=== PATIENT | male | born 1950 | race Hispanic/Latino ===

== ENCOUNTER → 2017-09-25 | Day surgery (SDC) | payer OTHER ==
[2017-09-24 09:50] LABS: BASOPHILS # (AUTO) 0.1 (0.0-0.1); BASOPHILS % 0.8 % (0.0-1.0); EOSINOPHILS # (AUTO) 1.4 (0.0-0.4); EOSINOPHILS % 19.9 % (0.0-6.0); HEMATOCRIT 40.3 % (38.2-49.6); HEMOGLOBIN 13.7 g/dL (14.0-18.0); LYMPHOCYTES # (AUTO) 2.1 (1.0-3.2); LYMPHOCYTES % 30.1 % (18.0-39.1); MEAN CORPUSCULAR HEMOGLOBIN 30.4 pg (28-32); MEAN CORPUSCULAR VOLUME 89.4 fL (81-99); MONOCYTES # (AUTO) 0.8 (0.2-0.8); MONOCYTES % 10.6 % (4.4-11.3); NEUTROPHILS # (AUTO) 2.7 (2.1-6.9); NEUTROPHILS % 38.3 % (38.7-80.0); PLATELET COUNT 164 x10e3/uL (140-360); RED BLOOD COUNT 4.51 x10e6/uL (4.3-5.7); RED CELL DISTRIBUTION WIDTH 13.8 % (11.7-14.4)
[2017-09-24 10:07] LABS: INR 1.23; PROTHROMBIN TIME 14.6 seconds (11.9-14.5)
[2017-09-24 10:08] LABS: PARTIAL THROMBOPLASTIN TIME 29.5 seconds (23.8-35.5)
[2017-09-24 10:10] LABS: ALANINE AMINOTRANSFERASE 18 IU/L (0-55); ALBUMIN 3.9 g/dL (3.5-5.0); ALBUMIN/GLOBULIN RATIO 1.1 (0.8-2.0); ALKALINE PHOSPHATASE 64 IU/L (40-150); ANION GAP 11.4 mmol/L (8-16); BLOOD UREA NITROGEN 20 mg/dL (7-26); BUN/CREATININE RATIO 19 (6-25); CALCIUM 9.2 mg/dL (8.4-10.2); CARBON DIOXIDE 25 mmol/L (22-29); CHLORIDE 105 mmol/L (98-107); CREATININE, SERUM 1.06 mg/dL (0.72-1.25); EST GLOMERULAR FILTRATION RATE > 60 ML/MIN (60-); GLUCOSE 196 mg/dL (74-118); POTASSIUM 4.4 mmol/L (3.5-5.1); SODIUM 137 mmol/L (136-145)
[~2017-09-25] VITALS: Ht 167.6 cm; Wt 88.5 kg
[~2017-09-25] MED LIST: AMLODIPINE BESYL5 MG PO; ASPIR 8181 MG PO; ASPIRIN 325 MG TAB ONE; ATORVASTATIN CA20 MG PO; CLOPIDOGREL BISULFATE 75 MG TAB ONE; CLOPIDOGREL75 MG PO; FENTANYL CITRATE/PF 100MCG/2 ML INJ ONE; GLIMEPIRIDE2 MG PO; HEPARIN SOD (PORCINE) 1000 UNIT/ML 30ML ONE; HEPARIN SOD/SOD CHLORIDE 2,000 ML ONE; IOPAMIDOL 370 MG/ML 200 ML INFUS..BTL INJ ONE; LIDOCAINE HCL 2% LOCAL 20 ML VIAL ONE; LISINOPRIL10 MG PO; METOPROLOL TART50 MG PO; MIDAZOLAM HCL 2 MG/2 ML VIAL ONE; NIACIN500 M2 PO; NITROGLYCERIN/D5W 200 MCG/ML 0 ML ONE; SODIUM CHLORIDE 0.9% 1000ML 1,000 ML ONE; TRADJENTA5 MG PO
[2017-09-25 11:09] VITALS: BP 139/76
[2017-09-25 16:05] VITALS: BP 163/83
[2017-09-25 16:20] VITALS: BP 148/94
[2017-09-25 16:35] VITALS: BP 133/89
[2017-09-25 16:44] VITALS: BP 170/85
[2017-09-25 17:00] VITALS: BP 157/81
--- NOTE | 2017-09-25 22:11 | Operative Report ---
DATE OF PROCEDURE: September 25, 2017 PROCEDURE INDICATION: Angina pectoris, stage, CCS 2-3 with abnormal stress test. PROCEDURE PERFORMED 1. Left heart catheterization and right selective coronary angiography x2. 2. Selective BLANKENSHIP to left anterior descending angiography. 3. Selective saphenous vein graft to right posterior descending artery angiography. 4. LV gram. 5. Manual pressure hemostasis. PROCEDURE COMPLICATIONS: None. ESTIMATED BLOOD LOSS: Less than 15 mL. PROCEDURE SUMMARY: After consent was obtained, the patient was prepped and draped in a sterile fashion. The right femoral site was locally infiltrated with 2% lidocaine and access was obtained with micropuncture. A 6-Burmese sheath was placed. Six Burmese catheters were railed over leading wire. JL4, JR4 were used. The following findings were noted: LEFT MAIN: Large in caliber with 60% mid stenosis gives an left anterior descending which is 100% occluded in the ostium and circumflex. LEFT ANTERIOR DESCENDIN% ostium to proximally occluded in the mid to distal left anterior descending. Filling is via the patent BLANKENSHIP to left anterior descending. This vessel in the mid to distal portion is overall diffusely diseased, approximately 40% to 50%. CIRCUMFLEX: A large caliber vessel, comes off the left main which is severely diseased. There is 30% stenosis of the circumflex prior to the first obtuse marginal. Two medium caliber obtuse marginals and a small left posterolateral branch arise from this vessel. RIGHT CORONARY ARTERY: Dominant and in the ostium there is 60% stenosis. The mid portion is 40% stenosed and the distal is 100% occluded. Patent saphenous vein graft to right posterior descending artery with 30% stenosis of saphenous vein graft to right posterior descending artery in the body. LV gram reveals preserved left ventricular systolic function with normal regional wall motion. Left ventricular ejection fraction of 60% to 65%. BLANKENSHIP to left anterior descending is patent. LV pressure is 164/-1 with end-diastolic pressure of 22. Aortic pressure is 160/68. CONCLUSION: Patent BLANKENSHIP to left anterior descending, patent saphenous vein graft to right posterior descending artery. Severe left main disease. Large territory circumflex. RECOMMENDATIONS: Discussed with the patient at length alternatives. The patient prefers transfer to higher level of care for high daniela PCI of left main with surgical backup availability. Will initiate. Job#: [id number]
== END | disposition short-term general hospital (02) ==
LOC: CATH LAB 10:36
PROVIDERS: ATTEND Internal Medicine Cardiovascular Disease
DX: I25.719 Atherosclerosis of autologous vein coronary artery bypass graft(s) with unspecified angina pectoris (principal); I25.82 Chronic total occlusion of coronary artery; R94.39 Abnormal result of other cardiovascular function study; I73.9 Peripheral vascular disease, unspecified; I10 Essential (primary) hypertension; E78.5 Hyperlipidemia, unspecified; E66.9 Obesity, unspecified; E11.69 Type 2 diabetes mellitus with other specified complication; R42 Dizziness and giddiness; F17.200 Nicotine dependence, unspecified, uncomplicated; Z79.02 Long term (current) use of antithrombotics/antiplatelets; Z79.82 Long term (current) use of aspirin
CPT/HCPCS: 36415; 77002; 80053; 85025; 85610; 85730; 93005; 93459; C1769; J2001; J2250; J7030; Q9967; 36140; 93452; J1644